=== PATIENT | female | born 1940 | race Caucasian/White ===

== ENCOUNTER 2019-05-30 15:24 | Inpatient (IN) | payer MEDICARE ==
[~2019-05-30] VITALS: Ht 162.6 cm; Wt 85.7 kg
[2019-06-08 07:14] VITALS: BP 124/71
== END 2019-06-08 12:20 | disposition home health service (06) | DRG 417 ==
LOC: ED 17:10 → EDIP 19:48 → 5SO 19:51 → CCU 06-04 09:48 → 4WST 06-05 22:59 → DCLOUNGE 06-08 12:00
PROVIDERS: ADMIT Family Medicine; ATTEND Family Medicine
PROC: 0T9B70Z Drainage of Bladder with Drainage Device, Via Natural or Artificial Opening (ICD-10-PCS; 2019-06-02)
PROC: 0FT44ZZ Resection of Gallbladder, Percutaneous Endoscopic Approach (ICD-10-PCS; principal; 2019-06-04)
PROC: 30233N1 Transfusion of Nonautologous Red Blood Cells into Peripheral Vein, Percutaneous Approach (ICD-10-PCS; 2019-06-06)
DX: K80.00 Calculus of gallbladder with acute cholecystitis without obstruction (principal); I21.A1 Myocardial infarction type 2; N17.9 Acute kidney failure, unspecified; D62 Acute posthemorrhagic anemia; I13.0 Hypertensive heart and chronic kidney disease with heart failure and stage 1 through stage 4 chronic kidney disease, or unspecified chronic kidney disease; I42.9 Cardiomyopathy, unspecified; I50.42 Chronic combined systolic (congestive) and diastolic (congestive) heart failure; N18.4 Chronic kidney disease, stage 4 (severe); D63.1 Anemia in chronic kidney disease; E03.9 Hypothyroidism, unspecified; E66.9 Obesity, unspecified; Z66 Do not resuscitate; E78.00 Pure hypercholesterolemia, unspecified; E78.5 Hyperlipidemia, unspecified; E87.5 Hyperkalemia; F32.9 Major depressive disorder, single episode, unspecified; G89.29 Other chronic pain; I08.3 Combined rheumatic disorders of mitral, aortic and tricuspid valves; Z60.2 Problems related to living alone; I25.10 Atherosclerotic heart disease of native coronary artery without angina pectoris; I27.20 Pulmonary hypertension, unspecified; I44.7 Left bundle-branch block, unspecified; I65.29 Occlusion and stenosis of unspecified carotid artery; I73.9 Peripheral vascular disease, unspecified; K82.8 Other specified diseases of gallbladder; Z96.643 Presence of artificial hip joint, bilateral; Z68.32 Body mass index [BMI] 32.0-32.9, adult; Z82.49 Family history of ischemic heart disease and other diseases of the circulatory system; Z86.73 Personal history of transient ischemic attack (TIA), and cerebral infarction without residual deficits; Z87.891 Personal history of nicotine dependence; Z95.1 Presence of aortocoronary bypass graft; Z88.0 Allergy status to penicillin
CPT/HCPCS: 0399T; 36415; 36430; 71045; 76700; 78227; 78582; 80048; 80053; 80061; 80069; 80074; 81003; 82040; 82272; 82728; 83540; 83550; 83690; 83735; 84439; 84443; 84466; 84481; 84484; 85014; 85018; 85025; 85379; 85520; 85610; 86850; 86870; 86900; 86902; 86922; 86923; 87081; 87338; 88304; 93005; 93306; 93970; 96374; C1729; G0378; J0171; J0690; J1100; J1644; J2260; J2405; J2704; J2710; J3010; A9537; A9540; A9558; C1760; C9898; J1940; J2270; J2370; J2805; J3490; J7050; P9016